=== PATIENT | female | born 1945 | race Caucasian/White ===

== ENCOUNTER 2020-09-11 16:28 | Inpatient (IN) | payer MEDICARE ==
--- NOTE | 2020-09-11 16:50 | ED ---
Chest Pain HPI - General Chief Complaint: Chest Pain Stated Complaint: SOB, Chest pain Time Seen by Provider: 09/11/20 16:38 Source: patient, RN notes reviewed Mode of arrival: ambulatory Limitations: no limitations - History of Present Illness Initial Comments: This is a 75-year-old female with no prior history of heart or lung disease other than she did have blood clots in the 1970s secondary to control pills who presents with complaints of the onset of difficulty breathing and exertional dyspnea with some lower midsternal dull pain yesterday. She also states she has sweats 2 days ago. No cough no phlegm production no fevers or chills. Currently arrest she's not having difficulty breathing. No other complaints or modifying factors at this time she does states she is a nonsmoker. MD Complaint: chest pain, other - Related Data Allergies Allergy/AdvReac Type Severity Reaction Status Date / Time phenytoin [From Dilantin] Allergy Unknown Verified 09/11/20 16:36 Review of Systems ROS Statement: Those systems with pertinent positive or pertinent negative responses have been documented in the HPI. ROS Other: All systems not noted in ROS Statement are negative. EKG Findings - EKG Results: EKG: interpreted by LAWRENCED, sinus rhythm (Sinus rhythm tachycardia rate of 108. Interval 168 QRS duration 148 QT since QTC 358/479) block pattern nonspecific T- wave configuration) Past Medical History Past Medical History: Seizure Disorder Additional Past Surgical History / Comment(s): arm surgery Past Psychological History: No Psychological Hx Reported Smoking Status: Never smoker Past Alcohol Use History: Occasional Past Drug Use History: None Reported General Exam - General Exam Comments Initial Comments: This is a well-developed well-nourished awake alert oriented 3 female Limitations: no limitations General appearance: alert, in no apparent distress Head exam: Present: atraumatic, normocephalic, normal inspection Eye exam: Present: normal appearance, PERRL, EOMI. Absent: scleral icterus, conjunctival injection, periorbital swelling ENT exam: Present: normal exam, mucous membranes moist Neck exam: Present: normal inspection. Absent: tenderness, meningismus, lymphadenopathy Respiratory exam: Present: normal lung sounds bilaterally. Absent: respiratory distress, wheezes, rales, rhonchi, stridor Cardiovascular Exam: Present: normal rhythm, tachycardia, normal heart sounds. Absent: systolic murmur, diastolic murmur, rubs, gallop, clicks GI/Abdominal exam: Present: soft, normal bowel sounds. Absent: distended, tenderness, guarding, rebound, rigid Extremities exam: Present: normal inspection, full ROM, normal capillary refill. Absent: tenderness, pedal edema, joint swelling, calf tenderness Back exam: Present: normal inspection Neurological exam: Present: alert, oriented X3, CN II-XII intact Psychiatric exam: Present: normal affect, normal mood Skin exam: Present: warm, dry, intact, normal color. Absent: rash Course Vital Signs 09/11/20 09/11/20 09/11/20 16:30 17:05 17:30 Temperature 98.9 F Pulse Rate 118 H 107 H 106 H Respiratory 20 22 19 Rate Blood Pressure 129/69 O2 Sat by Pulse 94 L Oximetry 09/11/20 09/11/20 09/11/20 18:00 18:30 19:00 Temperature Pulse Rate 118 H 118 H Respiratory 18 19 Rate Blood Pressure 128/103 126/91 145/103 O2 Sat by Pulse Oximetry - Reevaluation(s) Reevaluation #1: 09/11/20 17:18 No old EKG for comparison at this time Reevaluation #2: 09/11/20 19:05 I did discuss findings the patient and her daughter and grandson who is an ICU nurse at this facility. Patient initially did not want to stay but she is convinced to stay in the hospital for further evaluation. She does have evidence of a saddle pulmonary embolus without right heart strain as well as elevated troponin indicative of an STEMI her EKG did show a right bundle-branch block with no old ones for comparison Chest Pain MDM - MDM I did review the imaging and report the x-ray was unremarkable CAT SCAN DOES SHOW EVIDENCE OF A SADDLE EMBOLUS WITHOUT HEART STRAIN. Critical Care Time Critical Care Time: Yes Total Critical Care Time: 44 Critical Care Time: This includes initial presentation with history physical labs x-rays multiple reevaluation and discussed with the patient family regarding findings discussed with Dr. junior admitting orders documentation the above also discussed with the pulp beater Disposition Clinical Impression: Pulmonary embolism, Non-STEMI (non-ST elevated myocardial infarction), Right bundle branch block Disposition: ADMITTED IP TO THIS [facility] Condition: Stable Referrals: Nonstaff,Physician [Primary Care Provider] - 1-2 days
[2020-09-11 17:23] LABS: Basophils % (A) 0 %; Eosinophils % (A) 1 %; HGB 14.8 gm/dL (11.4-16.0); Lymphocytes # (A) 0.7 k/uL (1.0-4.8); Lymphocytes % (A) 8 %; MCH 30.6 pg (25.0-35.0); MCHC 31.5 g/dL (31.0-37.0); MCV 97.1 fL (80.0-100.0); Mean Platelet Volume 7.8; Monocytes # (A) 0.5 k/uL (0-1.0); Monocytes % (A) 5 %; Neutrophils # (A) 7.8 k/uL (1.3-7.7); Neutrophils % (A) 86 %; Platelet Count 119 k/uL (150-450); RBC 4.84 m/uL (3.80-5.40); RDW 13.3 % (11.5-15.5); WBC 9.2 k/uL (3.8-10.6)
[2020-09-11 17:40] LABS: Albumin 4.6 g/dL (3.5-5.0); Calcium 9.9 mg/dL (8.4-10.2); Magnesium 2.2 mg/dL (1.6-2.3); Potassium 4.4 mmol/L (3.5-5.1); Total Bilirubin 0.5 mg/dL (0.2-1.3); Total Protein 7.4 g/dL (6.3-8.2)
[2020-09-11 17:41] LABS: INR 1.1 (<1.2); Partial Thromboplastin Time 22.4 sec (22.0-30.0); Prothrombin Time 11.4 sec (9.0-12.0)
--- NOTE | 2020-09-11 17:42 | XR ---
EXAMINATION TYPE: XR chest 2V DATE OF EXAM: 09/11/2020 COMPARISON: None INDICATION: Chest pain, short of breath TECHNIQUE: Frontal and lateral views of the chest are obtained. FINDINGS: The heart size is normal. The pulmonary vasculature is normal. The lungs are clear. No pneumothorax is evident. Old right rib fractures are noted. IMPRESSION: 1. No acute pulmonary process.
[2020-09-11 17:44] LABS: D-Dimer 14.3 mg/L FEU (<0.60)
--- NOTE | 2020-09-11 18:27 | CT ---
CT CHEST FOR PULMONARY EMBOLISM. EXAMINATION TYPE: CT angio chest DATE OF EXAM: 09/11/2020 INDICATION: Shortness of breath, chest pain and elevated d-dimer. CT DLP: 297.6 mGycm, Automated exposure control for dose reduction was used. CONTRAST: Patient injected with 100ml mL of Isovue 370. COMPARISON: None TECHNIQUE: CT of the chest is performed on a spiral scan at 2 mm thick sections. Study is performed with intravenous contrast timed for evaluation for pulmonary embolism. This will limit additional po rtions of the evaluation. 3-D MIP images reconstructed by the technologist are reviewed on the compu ter in the coronal and sagittal planes. FINDINGS: There are large central bilateral pulmonary emboli. This may be a saddle embolism crossing the midlin e. No mediastinal or hilar adenopathy enlarged by CT criteria is evident. The ascending aorta diameter at the level of the main pulmonary artery is 3.2 cm. The main pulmonary artery diameter at the bifur cation is 2.7 cm. No reflux into the proximal inferior vena cava is evident. Lung windows are clear. Limited CT section through the upper abdomen are unremarkable. IMPRESSIONS: 1. Large central pulmonary emboli with thrombus crossing the midline compatible with a saddle embolis m. A Red level critical message alert has been initiated for Jeovany Shirley MD via the [employer] Critical Results System on 09/11/2020 6:24 PM. This message alert has been sent to Jeovany Shirley MD via the preferences provided by the clinician for the receipt of Radiology Critical Findings. Message ID [id number].
[2020-09-11] MEDS ORDERED: HEPARIN SODIUM,PORCINE 10,000 UNIT/ML 1 ML VIAL IV ONE (18:32)
[2020-09-11] MEDS ORDERED: HEPARIN SODIUM,PORCINE 5,000 UNIT/ML 1 ML VIAL IV PRN (18:32)
[2020-09-11] MEDS ORDERED: NITROGLYCERIN SL TABS 0.4 MG TAB SUBLINGUAL PRN (19:08)
[2020-09-11] MEDS: HEPARIN SOD,PORK IN 0.45% NACL 25,000 UNIT in 0.45% NACL 1 250ML.BAG IV SCH (19:40)
[2020-09-11] MEDS: SODIUM CHLORIDE 0.9% 1,000 ML IV SCH (19:44)
[2020-09-11] MEDS: MELOXICAM 7.5 MG TAB PO SCH (20:15)
[2020-09-11] MEDS ORDERED: clonazePAM 0.5 MG TAB PO PRN (22:24)
[2020-09-12 05:05] VITALS: RESP 18
[2020-09-12] MEDS: SODIUM CHLORIDE 0.9% 1,000 ML IV SCH ×2 (05:06→16:15)
[2020-09-12 09:00] LABS: Basophils # (A) 0.1 k/uL (0-0.2); Basophils % (A) 1 %; Eosinophils % (A) 0 %; HCT 39.9 % (34.0-46.0); HGB 12.8 gm/dL (11.4-16.0); Lymphocytes # (A) 2.3 k/uL (1.0-4.8); Lymphocytes % (A) 26 %; Mean Platelet Volume 7.7; Monocytes # (A) 0.6 k/uL (0-1.0); Monocytes % (A) 7 %; Neutrophils # (A) 5.6 k/uL (1.3-7.7); Neutrophils % (A) 64 %; Platelet Count 104 k/uL (150-450); RBC 4.11 m/uL (3.80-5.40); RDW 13.4 % (11.5-15.5); WBC 8.9 k/uL (3.8-10.6)
[2020-09-12] MEDS ORDERED: ASPIRIN 325 MG TAB PO SCH (09:00)
[2020-09-12] MEDS ORDERED: CITALOPRAM HYDROBROMIDE 20 MG TAB PO SCH (09:00)
[2020-09-12] MEDS ORDERED: ASPIRIN 81 MG PO SCH (09:00)
[2020-09-12 09:14] LABS: Cholesterol 136 mg/dL (<200); HDL Cholesterol 62 mg/dL (40-60); LDL Cholesterol,Calculated 59 mg/dL (0-99); Triglycerides 74 mg/dL (<150)
[2020-09-12] MEDS: MELOXICAM 7.5 MG TAB PO SCH (09:16)
--- NOTE | 2020-09-12 09:41 | US ---
EXAMINATION TYPE: US venous doppler duplex LE DATE OF EXAM: 09/12/2020 9:22 AM COMPARISON: NONE CLINICAL HISTORY: +PE, r/o DVT. SIDE PERFORMED: Bilateral TECHNIQUE: The lower extremity deep venous system is examined utilizing real time linear array sonog sarita with graded compression, doppler sonography and color-flow sonography. VESSELS IMAGED: Common Femoral Vein Deep Femoral Vein Greater Saphenous Vein * Femoral Vein Popliteal Vein Small Saphenous Vein * Proximal Calf Veins (* superficial vessels) Right Leg: Negative for DVT Left Leg: Positive for DVT starting at the proximal popliteal vein extending through calf veins. IMPRESSION: 1. Exam positive for left lower extremity DVT originating at the popliteal vein and extending into th e calf veins.
--- NOTE | 2020-09-12 11:31 | ECHOF ---
Referral Reason:Saddle PE, lv function MEASUREMENTS -------- HEIGHT: 162.6 cm WEIGHT: 69.9 kg BP: RVIDd: 3.8 cm (< 3.3) IVSd: 1.1 cm (0.6 - 1.1) LVIDd: 3.2 cm (3.9 - 5.3) LVPWd: 1.1 cm (0.6 - 1.1) IVSs: 1.3 cm LVIDs: 2.8 cm LVPWs: 1.2 cm Ao Diam: 3.3 cm (2.0 - 3.7) AV Cusp: 1.9 cm (1.5 - 2.6) MV EXCURSION: 13.536 mm (> 18.000) MV E Alejandro: 0.34 m/s MV DecT: 180 ms MV A Alejandro: 0.86 m/s MV E/A Ratio: 0.40 RAP: 5.00 mmHg RVSP: 48.51 mmHg FINDINGS -------- Sinus rhythm. This was a technically adequate study. LV size, wall thickness and systolic function are normal, with an EF greater than 55%. The left angelica tricular size is normal. The right ventricle is severely enlarged. The right ventricular septal wall is flattened in diastol e and systole which is consistent with right ventricular volume and pressure overload. The left atrial size is normal. The right atrial size is normal. The aortic valve is trileaflet, and appears structurally normal. No aortic stenosis or regurgitation. Mild tricuspid regurgitation present. There is moderate to severe pulmonary hypertension. There is no pulmonic regurgitation present. There is an echogenic, highly mobile 2.5cm x 0.5cm strutcutre in the right atrium most consistent wit h a thombus. Additionally there is a 0.5cm x 3cm mobile echogenic structure which appears to origina te near the intratrial septum. Consideration could be paradoxical thrombus in transit or less likely artifact. Would consider MARTY if clinically indicated to further clarify. The aortic root size is normal. There is no pericardial effusion. CONCLUSIONS -------- 1. LV size, wall thickness and systolic function are normal, with an EF greater than 55%. 2. The left ventricular size is normal. 3. The right ventricle is severely enlarged. 4. The right ventricular septal wall is flattened in diastole and systole which is consistent with r ight ventricular volume and pressure overload. 5. The left atrial size is normal. 6. The right atrial size is normal. 7. Mild tricuspid regurgitation present. 8. There is moderate to severe pulmonary hypertension. 9. There is no pulmonic regurgitation present. 10. There is an echogenic, highly mobile 2.5cm x 0.5cm strutcutre in the right atrium most consistent with a thombus. Additionally there is a 0.5cm x 3cm mobile echogenic structure which appears to lalit ginate near the intratrial septum. Consideration could be paradoxical thrombus in transit or less li daljit artifact. Would consider MARTY if clinically indicated to further clarify. 11. The aortic root size is normal. 12. There is no pericardial effusion. ROLLER SKATER: Salome Sorensen RDCS
--- NOTE | 2020-09-12 11:43 | P.HPIM ---
History of Present Illness Patient is pleasant 75-year-old the female came in with complaints of exertional shortness of breath and midsternal dull chest pain mild chest pain going on since since last Friday. Patient was more short of breath because of which patient came to ER yesterday. Patient had a workup including CT angios the chest which showed large central pulmonary emboli crossing the midline compatible with saddle embolus patient does have extensive clot burden involving superior vena cava. There is no medial or hilar lymphadenopathy. Patient had an echo cardiac exam done official results are not available yet as per the leather stitcher patient does have right with chest pain with elevated troponins and significant EKG changes. Patient apparently has clot burden on the left side as well and there was a concern about paradoxical embolus. Patient is a candidate for clot extraction or intralesional thrombolytic. Same thing was discussed with vascular surgeon here who also happened to cover [facility] [place]. Case was discussed with the hospitalist of [facility] who accepted the patient. Patient does have elevated troponin and patient troponin elevation is progressive increased to around 1.45 presently and started is 0.7. Patient had a positive DVT in the left lower extremity originating in the popliteal vein and extending into the calf. Patient had a DVT many years ago when she was on oral contraceptive pills. Patient is up-to-date with her cancer screening procedures and patient denied any recent weight loss. Patient denied any recent travel or recent surgery. Patient although hemodynamics is stable at this time is on 2 L saturating at 92%. Review of Systems REVIEW OF SYSTEMS: CONSTITUTIONAL: No fever, no malaise, no fatigue. HEENT: No recent visual problems or hearing problems. Denied any sore throat. CARDIOVASCULAR: No orthopnea, PND, no palpitations, no syncope. PULMONARY: no hemoptysis. GASTROINTESTINAL: No diarrhea, no nausea, no vomiting, no abdominal pain. NEUROLOGICAL: No headaches, no weakness, no numbness. HEMATOLOGICAL: Denies any bleeding or petechiae. GENITOURINARY: Denies any burning micturition, frequency, or urgency. MUSCULOSKELETAL/RHEUMATOLOGICAL: Denies any joint pain, swelling, or any muscle pain. ENDOCRINE: Denies any polyuria or polydipsia. The rest of the 14-point review of systems is negative. Past Medical History Past Medical History: Pulmonary Embolus (PE), Seizure Disorder Additional Past Medical History / Comment(s): last seizure date not known currently on no meds for this at home. Had PE in the 1970s related to control use. History of Any Multi-Drug Resistant Organisms: None Reported Additional Past Surgical History / Comment(s): arm surgery Past Psychological History: No Psychological Hx Reported Smoking Status: Never smoker Past Alcohol Use History: Occasional Past Drug Use History: None Reported Medications and Allergies Home Medications Medication Instructions Recorded Confirmed Type Aspirin [[place]raham Aspirin EC] 81 mg PO DAILY 09/11/20 09/11/20 History Citalopram Hydrobromide 40 mg PO DAILY 09/11/20 09/11/20 History [Citalopram HBr] Dicyclomine HCl 20 mg PO BID 09/11/20 09/11/20 History Meloxicam 15 mg PO HS 09/11/20 09/11/20 History Vitamin B12 Gummies (Unknown 1 tab PO DAILY 09/11/20 09/11/20 History Strength) clonazePAM [KlonoPIN] 0.5 mg PO HS PRN 09/11/20 09/11/20 History rOPINIRole HCL [Requip] 1 mg PO HS 09/11/20 09/11/20 History Allergies Allergy/AdvReac Type Severity Reaction Status Date / Time phenytoin [From Dilantin] Allergy Unknown Verified 09/11/20 20:08 Physical Exam Vitals: Vital Signs Temp Pulse Pulse Resp BP BP Pulse Ox 09/12/20 11:26 97.6 F 87 18 126/85 93 L 09/12/20 09:39 98.2 F 88 18 136/81 92 L 09/12/20 04:00 98.8 F 86 18 124/70 97 09/12/20 02:00 110 H 20 09/11/20 23:01 110 H 20 130/80 98 09/11/20 22:47 75 20 09/11/20 20:00 97.6 F 112 H 20 121/80 96 09/11/20 19:42 116 H 16 157/69 09/11/20 19:23 98.2 F 75 18 136/82 94 L 09/11/20 19:00 118 H 19 145/103 09/11/20 18:30 118 H 18 126/91 09/11/20 18:00 128/103 09/11/20 17:30 106 H 19 09/11/20 17:05 107 H 22 09/11/20 16:30 98.9 F 118 H 20 129/69 94 L Intake and Output 09/11/20 09/12/20 09/12/20 22:59 06:59 14:59 Intake Total 920.264 0 Output Total 250 Balance 670.264 0 Intake: Intake, IV Titration 680.264 0 Amount Heparin Sod,Pork in 0.45% 80.264 0 NaCl 25,000 unit In 0.45 % NaCl 1 250ml.bag @ 18 UNITS/KG/HR 12.574 mls/hr IV .[id number] SHAYY Rx#: [id number] Sodium Chloride 0.9% 1, 600 000 ml @ 100 mls/hr IV . Q10H SHAYY Rx#:[id number] Oral 240 Output: Urine 250 Other: Voiding Method Bedside Commode Bedside Commode Bedside Commode # Voids 1 1 Weight 69.853 kg 70.1 kg PHYSICAL EXAMINATION: GENERAL: The patient is alert and oriented x3, not in any acute distress. Well developed, well nourished. HEENT: Pupils are round and equally reacting to light. EOMI. No scleral icterus. No conjunctival pallor. Normocephalic, atraumatic. No pharyngeal erythema. No thyromegaly. CARDIOVASCULAR: S1 and S2 present. No murmurs, rubs, or gallops. PULMONARY: Chest is clear to auscultation, no wheezing or crackles. ABDOMEN: Soft, nontender, nondistended, normoactive bowel sounds. No palpable organomegaly. MUSCULOSKELETAL: No joint swelling or deformity. EXTREMITIES: No cyanosis, clubbing, or pedal edema. NEUROLOGICAL: Gross neurological examination did not reveal any focal deficits. SKIN: No rashes. Results CBC & Chem 7: 09/12/20 08:25 09/11/20 17:07 Labs: Abnormal Lab Results - Last 24 Hours (Table) 09/11/20 09/11/20 09/11/20 Range/Units 17:07 17:07 17:07 Hct 47.0 H (34.0-46.0) % Plt Count 119 L (150-450) k/uL Neutrophils # 7.8 H (1.3-7.7) k/uL Lymphocytes # 0.7 L (1.0-4.8) k/uL APTT (22.0-30.0) sec D-Dimer 14.30 H (<0.60) mg/L FEU BUN 27 H (7-17) mg/dL Glucose 168 H (74-99) mg/dL AST 161 H (14-36) U/L ALT 202 H (4-34) U/L Creatine Kinase 238 H (30-135) U/L Troponin I (0.000-0.034) ng/mL HDL Cholesterol (40-60) mg/dL 09/11/20 09/11/20 09/11/20 Range/Units 17:07 19:56 23:11 Hct (34.0-46.0) % Plt Count (150-450) k/uL Neutrophils # (1.3-7.7) k/uL Lymphocytes # (1.0-4.8) k/uL APTT (22.0-30.0) sec D-Dimer (<0.60) mg/L FEU BUN (7-17) mg/dL Glucose (74-99) mg/dL AST (14-36) U/L ALT (4-34) U/L Creatine Kinase (30-135) U/L Troponin I 0.775 H* 1.070 H* 1.450 H* (0.000-0.034) ng/mL HDL Cholesterol (40-60) mg/dL 09/12/20 09/12/20 09/12/20 Range/Units 01:19 08:25 08:25 Hct (34.0-46.0) % Plt Count 104 L (150-450) k/uL Neutrophils # (1.3-7.7) k/uL Lymphocytes # (1.0-4.8) k/uL APTT 143.8 H* (22.0-30.0) sec D-Dimer (<0.60) mg/L FEU BUN (7-17) mg/dL Glucose (74-99) mg/dL AST (14-36) U/L ALT (4-34) U/L Creatine Kinase (30-135) U/L Troponin I (0.000-0.034) ng/mL HDL Cholesterol 62 H (40-60) mg/dL 09/12/20 Range/Units 08:25 Hct (34.0-46.0) % Plt Count (150-450) k/uL Neutrophils # (1.3-7.7) k/uL Lymphocytes # (1.0-4.8) k/uL APTT 85.0 H (22.0-30.0) sec D-Dimer (<0.60) mg/L FEU BUN (7-17) mg/dL Glucose (74-99) mg/dL AST (14-36) U/L ALT (4-34) U/L Creatine Kinase (30-135) U/L Troponin I (0.000-0.034) ng/mL HDL Cholesterol (40-60) mg/dL Thrombosis Risk Factor Assmnt - Choose All That Apply Each Risk Factor Represents 2 Points: Age 61-74 years Each Risk Factor Represents 3 Points: History of DVT/PE Thrombosis Risk Factor Assessment Total Risk Factor Score: 5 Thrombosis Risk Factor Assessment Level: High Risk Assessment and Plan Plan: -Pulmonary embolism, patient has had an embolus and extensive clot burden will require either clot extraction or intralesional, reticulocyte therapy. Patient the will be transferred to [facility] for higher level of care. Patient will be continued on IV heparin for now. Rapid: Testing was ordered as per the request from -Elevated troponin: Secondary to left ventricular strain. Possibility of paradoxical embolus. -Left lower limb DVT -Seizure disorder patient is presently on any antiseizure medications, date of last seizure was not known -Depression Patient will be transferred to [facility] because of above- mentioned
--- NOTE | 2020-09-12 11:43 | P.DS ---
Providers Date of admission: 09/11/20 19:08 Attending physician: Phani Thomas MD Consults: 09/11/20 19:08 Consult Physician Routine Consulting Provider: Rosalina Martin Consult Reason/Comments: PE Do you want consulting provider notified?: Yes Consult Physician Urgent Consulting Provider: Sabrina Dawkins Consult Reason/Comments: NSTEMI, PE Do you want consulting provider notified?: Already Contacted 09/12/20 10:14 Consult Physician Routine Consulting Provider: Elier Lopez Consult Reason/Comments: PE/EKOS Do you want consulting provider notified?: Yes Primary care physician: Physician Nonsta Hospital Course: Refer to HPI for further details Patient Condition at Discharge: Stable Plan - Discharge Summary Discharge Rx Participant: No New Discharge Prescriptions: No Action rOPINIRole HCL [Requip] 1 mg PO HS Meloxicam 15 mg PO HS Vitamin B12 Gummies (Unknown Strength) 1 tab PO DAILY Dicyclomine HCl 20 mg PO BID Citalopram Hydrobromide [Citalopram HBr] 40 mg PO DAILY Aspirin [[place] Aspirin EC] 81 mg PO DAILY clonazePAM [KlonoPIN] 0.5 mg PO HS PRN PRN Reason: insomnia Discharge Medication List Aspirin [[place] Aspirin EC] 81 mg PO DAILY 09/11/20 [History] Citalopram Hydrobromide [Citalopram HBr] 40 mg PO DAILY 09/11/20 [History] Dicyclomine HCl 20 mg PO BID 09/11/20 [History] Meloxicam 15 mg PO HS 09/11/20 [History] Vitamin B12 Gummies (Unknown Strength) 1 tab PO DAILY 09/11/20 [History] clonazePAM [KlonoPIN] 0.5 mg PO HS PRN 09/11/20 [History] rOPINIRole HCL [Requip] 1 mg PO HS 09/11/20 [History]
--- NOTE | 2020-09-12 11:55 | P.GSCN ---
History of Present Illness Consult date: 09/12/20 Reason for Consult: Bilateral pulmonary embolism, possible EKOS Requesting physician: Rosalina Martin History of present illness: This is a 75-year-old female with no prior history of heart or lung disease who presented to the ER for complaints of shortness of breath since Friday. She does have a history of pulmonary embolism in the secondary to control pills. Denies any family history of clotting disorders, any personal history of clotting disorders, she denies any recent travel or surgery. 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 She had a CT angiogram of the chest which showed a large central pulmonary embolism with thrombus crossing the midline compatible with a saddle embolism. She also had a bilateral venous Doppler study which showed positive DVT starting at the proximal popliteal vein extending through the calf veins. We've been consulted due to the pulmonary embolism, with reported right heart strain. Echocardiogram was performed, is reported that they saw a right heart strain, however report is still pending. She is currently on a heparin drip. Patient is complaining of shortness of breath, she denies any chest pain, abdominal pain, nausea or vomiting. She denies any pain to her bilateral lower extremities, denies pain to the left calf. States that she does have some numbness in her right lower extremity. Vital signs are stable, blood pressure 126/85, heart rate 87, respiratory rate 18, oxygen level 93% 2 L of nasal cannula. WBC 8.9, hemoglobin 12.8, hematocrit 39.9, platelets 104. PTT 85, d- dimer 14.3, 137, potassium 4.4, chloride 105 CO2 23 BUN 27, creatinine 0.9 Review of Systems A 14 point review of systems was completed all pertinent positives and negatives as stated in HPI. Past Medical History Past Medical History: Pulmonary Embolus (PE), Seizure Disorder Additional Past Medical History / Comment(s): last seizure date not known currently on no meds for this at home. Had PE in the s related to control use. History of Any Multi-Drug Resistant Organisms: None Reported Additional Past Surgical History / Comment(s): arm surgery Past Psychological History: No Psychological Hx Reported Smoking Status: Never smoker Past Alcohol Use History: Occasional Past Drug Use History: None Reported Medications and Allergies Home Medications Medication Instructions Recorded Confirmed Type Aspirin [[place] Aspirin EC] 81 mg PO DAILY 09/11/20 09/11/20 History Citalopram Hydrobromide 40 mg PO DAILY 09/11/20 09/11/20 History [Citalopram HBr] Dicyclomine HCl 20 mg PO BID 09/11/20 09/11/20 History Meloxicam 15 mg PO HS 09/11/20 09/11/20 History Vitamin B12 Gummies (Unknown 1 tab PO DAILY 09/11/20 09/11/20 History Strength) clonazePAM [KlonoPIN] 0.5 mg PO HS PRN 09/11/20 09/11/20 History rOPINIRole HCL [Requip] 1 mg PO HS 09/11/20 09/11/20 History Allergies Allergy/AdvReac Type Severity Reaction Status Date / Time phenytoin [From Dilantin] Allergy Unknown Verified 09/11/20 20:08 Surgical - Exam Vital Signs Temp Pulse Resp BP Pulse Ox 98.9 F 118 H 20 129/69 94 L 09/11/20 16:30 09/11/20 16:30 09/11/20 16:30 09/11/20 16:30 09/11/20 16:30 General appearance: The patient is alert, oriented, in no acute distress. HET: Head is normocephalic and atraumatic. Pupils are equal and reactive. Oropharynx is clear without lesions. Neck: Supple without lymphadenopathy. Trachea midline. Heart: S1 S2. Regular rate and rhythm. Lungs: No crackles or wheezes are heard. Abdomen: Soft, nontender, nondistended. Extremities: Normal skin color and turgor. No cyanosis, rash, ulceration, clubbing, or edema. Radial and pedal pulses are 2/4 bilaterally. Neurological: No focal deficits. Strength and sensation are grossly intact. Results CT angiogram of the chest which showed a large central pulmonary embolism with thrombus crossing the midline compatible with a saddle embolism. Venous Doppler study which showed positive DVT starting at the proximal popliteal vein extending through the calf veins. - Labs 09/12/20 08:25 09/11/20 17:07 Abnormal Lab Results - Last 24 Hours (Table) 09/11/20 09/11/20 09/11/20 Range/Units 17:07 17:07 17:07 Hct 47.0 H (34.0-46.0) % Plt Count 119 L (150-450) k/uL Neutrophils # 7.8 H (1.3-7.7) k/uL Lymphocytes # 0.7 L (1.0-4.8) k/uL APTT (22.0-30.0) sec D-Dimer 14.30 H (<0.60) mg/L FEU BUN 27 H (7-17) mg/dL Glucose 168 H (74-99) mg/dL AST 161 H (14-36) U/L ALT 202 H (4-34) U/L Creatine Kinase 238 H (30-135) U/L Troponin I (0.000-0.034) ng/mL HDL Cholesterol (40-60) mg/dL 09/11/20 09/11/20 09/11/20 Range/Units 17:07 19:56 23:11 Hct (34.0-46.0) % Plt Count (150-450) k/uL Neutrophils # (1.3-7.7) k/uL Lymphocytes # (1.0-4.8) k/uL APTT (22.0-30.0) sec D-Dimer (<0.60) mg/L FEU BUN (7-17) mg/dL Glucose (74-99) mg/dL AST (14-36) U/L ALT (4-34) U/L Creatine Kinase (30-135) U/L Troponin I 0.775 H* 1.070 H* 1.450 H* (0.000-0.034) ng/mL HDL Cholesterol (40-60) mg/dL 09/12/20 09/12/20 09/12/20 Range/Units 01:19 08:25 08:25 Hct (34.0-46.0) % Plt Count 104 L (150-450) k/uL Neutrophils # (1.3-7.7) k/uL Lymphocytes # (1.0-4.8) k/uL APTT 143.8 H* (22.0-30.0) sec D-Dimer (<0.60) mg/L FEU BUN (7-17) mg/dL Glucose (74-99) mg/dL AST (14-36) U/L ALT (4-34) U/L Creatine Kinase (30-135) U/L Troponin I (0.000-0.034) ng/mL HDL Cholesterol 62 H (40-60) mg/dL 09/12/20 Range/Units 08:25 Hct (34.0-46.0) % Plt Count (150-450) k/uL Neutrophils # (1.3-7.7) k/uL Lymphocytes # (1.0-4.8) k/uL APTT 85.0 H (22.0-30.0) sec D-Dimer (<0.60) mg/L FEU BUN (7-17) mg/dL Glucose (74-99) mg/dL AST (14-36) U/L ALT (4-34) U/L Creatine Kinase (30-135) U/L Troponin I (0.000-0.034) ng/mL HDL Cholesterol (40-60) mg/dL Diabetes panel 09/11/20 09/12/20 Range/Units 17:07 08:25 Sodium 137 (137-145) mmol/L Potassium 4.4 (3.5-5.1) mmol/L Chloride 105 (98-107) mmol/L Carbon Dioxide 23 (22-30) mmol/L BUN 27 H (7-17) mg/dL Creatinine 0.90 (0.52-1.04) mg/dL Glucose 168 H (74-99) mg/dL Calcium 9.9 (8.4-10.2) mg/dL AST 161 H (14-36) U/L ALT 202 H (4-34) U/L Alkaline Phosphatase 80 (38-126) U/L Total Protein 7.4 (6.3-8.2) g/dL Albumin 4.6 (3.5-5.0) g/dL Triglycerides 74 (<150) mg/dL HDL Cholesterol 62 H (40-60) mg/dL Calcium panel 09/11/20 Range/Units 17:07 Calcium 9.9 (8.4-10.2) mg/dL Albumin 4.6 (3.5-5.0) g/dL Pituitary panel 09/11/20 Range/Units 17:07 Sodium 137 (137-145) mmol/L Potassium 4.4 (3.5-5.1) mmol/L Chloride 105 (98-107) mmol/L Carbon Dioxide 23 (22-30) mmol/L BUN 27 H (7-17) mg/dL Creatinine 0.90 (0.52-1.04) mg/dL Glucose 168 H (74-99) mg/dL Calcium 9.9 (8.4-10.2) mg/dL Adrenal panel 09/11/20 Range/Units 17:07 Sodium 137 (137-145) mmol/L Potassium 4.4 (3.5-5.1) mmol/L Chloride 105 (98-107) mmol/L Carbon Dioxide 23 (22-30) mmol/L BUN 27 H (7-17) mg/dL Creatinine 0.90 (0.52-1.04) mg/dL Glucose 168 H (74-99) mg/dL Calcium 9.9 (8.4-10.2) mg/dL Total Bilirubin 0.5 (0.2-1.3) mg/dL AST 161 H (14-36) U/L ALT 202 H (4-34) U/L Alkaline Phosphatase 80 (38-126) U/L Total Protein 7.4 (6.3-8.2) g/dL Albumin 4.6 (3.5-5.0) g/dL Assessment and Plan Assessment: 1. Bilateral pulmonary embolism 2. Left lower extremity deep vein thrombosis Plan: The patient was discussed with Dr. Trina Jules who agree patient to be transferred to [facility] for further management and possible EKOS. Continue with heparin drip. Transfer is being arranged with case management and by primary medical team. Thank you for this consultation, and allowing us to take part in the plan of care of your patient during her hospitalization. The above dictated assessment and findings were discussed with Dr. Mena. The impression and plan of care have been directed as dictated.
--- NOTE | 2020-09-12 12:08 | EST ---
EXERCISE STRESS Belkis Ribera is a 75-year-old female who was admitted with saddle pulmonary embolism. Cardiology was consulted on account of abnormal troponins. Please see the full dictation by the nurse practitioner. I evaluated, interviewed and examined the patient. IMPRESSION: 1. Large saddle embolus with an abnormal ECG with sinus tachycardia and S1 Q3 T3. 2. No neurologic symptoms. 3. Minimal discomfort and shortness of breath. The patient actually looks very comfortable and was ambulating in the room. 2D echo was reviewed. The right ventricle is enlarged. A stained pattern is noted. More importantly, the thrombus/clot burden in this patient is high. This can be visualized in the IVC and the right atrium. There is a linear mass (likely thrombus clot) abutting against the interatrial septum. There is also a linear shadow in the left ventricle and the left atrium crossing the mitral anulus that is likely a result of paradoxical embolism and most likely represents thrombus on the left side. The patient has absolutely no neurologic symptoms. I discussed this with Dr. Thomas and Dr. Rodriguez. I discussed this with Dr. Martin, pulmonology. I would recommend that the patient be transferred to a facility where the option of [place] exists. Clot aspiration as well as thrombolytics are considerations here especially on the right side and the mass that is abutting against the interatrial septum. The patient is currently on IV heparin. This was discussed with the patient and I would recommend urgent transfer. RADHA / SORAYAN: [id number] /
--- NOTE | 2020-09-12 13:02 | P.CNPUL ---
History of Present Illness Consult date: 09/12/20 Reason for consult: dyspnea, chest pain Chief complaint: Dyspnea, chest discomfort History of present illness: This is a 75-year-old white female patient who has no history of chronic lung disease, she has a past medical history of seizure disorder, who presented to the hospital on 09/11/2020 with complaints of shortness of breath since Friday, and her shortness of breath progressed and was worse with any exertion. She did have some mild chest dull ache anteriorly, but no syncope, no hemoptysis. She stated that she did have a prior history of blood clots in the 1970s when she was on control pills. She denies any history of recent surgery, no family history of PEs or DVTs, no history of cancer, no recent history of travel. No fever or chills, no cough. Chest x-ray showed no acute pulmonary process, labs revealed a significantly elevated d-dimer of 14.3, and CTA chest was obtained showing a large central pulmonary emboli with thrombus crossing the midline compatible with a saddle embolism, there was no mediastinal hilar adenopathy, and the pulmonary artery diameter at the bifurcation was 2.7 cm, and there was no reflux into the proximal inferior vena cava that was evident, lung windows were clear. She was started on high intensity heparin infusion, lower extremity Dopplers revealed a left lower extremity DVT at the proximal popliteal vein extending through the calf veins. Vitals have been stable, no hypotension, she is not requiring any supplemental oxygen, she appears to be comfortable, cardiology was consulted, echocardiogram was obtained showing EF greater than 55%, normal left ventricular size, right ventricle was severely enlarged, with the right ventricular septal wall flattening in diastole and systole which was consistent with right ventricular volume and pressure overload. There was no aortic stenosis or regurgitation, there was mild TR, moderate to severe pulmonary hypertension, and there was an echogenic highly mobile 2.5 cm x 0.5 cm structure in the right atrium most consistent with a thrombus, with an additional 0.5 cm x 3 cm mobile echogenic structure near the intra-atrial septum, with the consideration for paradoxical thrombus in transit. Patient also had positive troponins, quickly 0.775, 1.070, and 1.450, proBNP is 4810. Review of Systems All systems: negative Constitutional: Denies chills, Denies fever Eyes: denies blurred vision, denies pain Ears, nose, mouth and throat: Denies headache, Denies sore throat Cardiovascular: Denies chest pain, Denies shortness of breath Respiratory: Reports dyspnea, Denies cough Gastrointestinal: Denies abdominal pain, Denies diarrhea, Denies nausea, Denies vomiting Genitourinary: Denies dysuria, Denies hematuria Musculoskeletal: Denies myalgias Integumentary: Denies pruritus, Denies rash Neurological: Denies numbness, Denies weakness Psychiatric: Denies anxiety, Denies depression Endocrine: Denies fatigue, Denies weight change Past Medical History Past Medical History: Pulmonary Embolus (PE), Seizure Disorder Additional Past Medical History / Comment(s): last seizure date not known currently on no meds for this at home. Had PE in the s related to control use. History of Any Multi-Drug Resistant Organisms: None Reported Additional Past Surgical History / Comment(s): arm surgery Past Psychological History: No Psychological Hx Reported Smoking Status: Never smoker Past Alcohol Use History: Occasional Past Drug Use History: None Reported Medications and Allergies Home Medications Medication Instructions Recorded Confirmed Type Aspirin [[place] Aspirin EC] 81 mg PO DAILY 09/11/20 09/11/20 History Citalopram Hydrobromide 40 mg PO DAILY 09/11/20 09/11/20 History [Citalopram HBr] Dicyclomine HCl 20 mg PO BID 09/11/20 09/11/20 History Meloxicam 15 mg PO HS 09/11/20 09/11/20 History Vitamin B12 Gummies (Unknown 1 tab PO DAILY 09/11/20 09/11/20 History Strength) clonazePAM [KlonoPIN] 0.5 mg PO HS PRN 09/11/20 09/11/20 History rOPINIRole HCL [Requip] 1 mg PO HS 09/11/20 09/11/20 History Allergies Allergy/AdvReac Type Severity Reaction Status Date / Time phenytoin [From Dilantin] Allergy Unknown Verified 09/11/20 20:08 Physical Exam Vitals: Vital Signs Temp Pulse Pulse Resp BP BP Pulse Ox 09/12/20 11:26 97.6 F 87 18 126/85 93 L 09/12/20 09:39 98.2 F 88 18 136/81 92 L 09/12/20 04:00 98.8 F 86 18 124/70 97 12/15/20 02:00 110 H 20 09/11/20 23:01 110 H 20 130/80 98 09/11/20 22:47 75 20 09/11/20 20:00 97.6 F 112 H 20 121/80 96 09/11/20 19:42 116 H 16 157/69 09/11/20 19:23 98.2 F 75 18 136/82 94 L 09/11/20 19:00 118 H 19 145/103 09/11/20 18:30 118 H 18 126/91 09/11/20 18:00 128/103 09/11/20 17:30 106 H 19 09/11/20 17:05 107 H 22 09/11/20 16:30 98.9 F 118 H 20 129/69 94 L Intake and Output 09/11/20 09/12/20 09/12/20 22:59 06:59 14:59 Intake Total 920.264 0 Output Total 250 Balance 670.264 0 Intake: Intake, IV Titration 680.264 0 Amount Heparin Sod,Pork in 0.45% 80.264 0 NaCl 25,000 unit In 0.45 % NaCl 1 250ml.bag @ 18 UNITS/KG/HR 12.574 mls/hr IV .[id number] SHAYY Rx#: [id number] Sodium Chloride 0.9% 1, 600 000 ml @ 100 mls/hr IV . Q10H SHAYY Rx#:[id number] Oral 240 Output: Urine 250 Other: Voiding Method Bedside Commode Bedside Commode Bedside Commode # Voids 1 1 Weight 69.853 kg 70.1 kg GENERAL EXAM: Alert, very pleasant 75-year-old white female, on room air, with a pulse ox 93%, comfortable in no apparent distress. HEAD: Normocephalic/atraumatic. EYES: Normal reaction of pupils, equal size. Conjunctiva pink, sclera white. NOSE: Clear with pink turbinates. THROAT: No erythema or exudates. NECK: No masses, no JVD, no thyroid enlargement, no adenopathy. CHEST: No chest wall deformity. Symmetrical expansion. LUNGS: Equal air entry with no crackles, wheeze, rhonchi or dullness. CVS: Regular rate and rhythm, normal S1 and S2, no gallops, no murmurs, no rubs ABDOMEN: Soft, nontender. No hepatosplenomegaly, normal bowel sounds, no guarding or rigidity. EXTREMITIES: No clubbing, no edema, no cyanosis, 2+ pulses and upper and lower extremities. MUSCULOSKELETAL: Muscle strength and tone normal. SPINE: No scoliosis or deformity SKIN: No rashes CENTRAL NERVOUS SYSTEM: Alert and oriented -3. No focal deficits, tone is normal in all 4 extremities. PSYCHIATRIC: Alert and oriented -3. Appropriate affect. Intact judgment and insight. Results - Laboratory Findings CBC and BMP: 09/12/20 08:25 09/11/20 17:07 PT/INR, D-dimer PT 11.4 sec (9.0-12.0) 09/11/20 17:07 INR 1.1 (<1.2) 09/11/20 17:07 D-Dimer 14.30 mg/L FEU (<0.60) H 09/11/20 17:07 Abnormal lab findings: Abnormal Labs 09/11/20 09/11/20 09/11/20 17:07 17:07 17:07 Hct 47.0 H Plt Count 119 L Neutrophils # 7.8 H Lymphocytes # 0.7 L APTT D-Dimer 14.30 H BUN 27 H Glucose 168 H AST 161 H ALT 202 H Creatine Kinase 238 H Troponin I HDL Cholesterol 09/11/20 09/11/20 09/11/20 17:07 19:56 23:11 Hct Plt Count Neutrophils # Lymphocytes # APTT D-Dimer BUN Glucose AST ALT Creatine Kinase Troponin I 0.775 H* 1.070 H* 1.450 H* HDL Cholesterol 09/12/20 09/12/20 09/12/20 01:19 08:25 08:25 Hct Plt Count 104 L Neutrophils # Lymphocytes # APTT 143.8 H* D-Dimer BUN Glucose AST ALT Creatine Kinase Troponin I HDL Cholesterol 62 H 09/12/20 08:25 Hct Plt Count Neutrophils # Lymphocytes # APTT 85.0 H D-Dimer BUN Glucose AST ALT Creatine Kinase Troponin I HDL Cholesterol - Diagnostic Findings Chest x-ray: report reviewed, image reviewed CT scan - chest: report reviewed, image reviewed Additional studies: Extremity Dopplers, EKG reviewed, echocardiogram reviewed Assessment and Plan Plan: Assessment: #1. Acute central, saddle pulmonary emboli, with evidence of heavy clot burden in bilateral lungs, and and evidence of right ventricular strain #2. Dyspnea, and dull chest discomfort related to the above, and symptom onset was on 09/10/2020 #3. Left leg DVT #4. Previous history of PE and DVT in 1970s when the patient was taking control pills #5. History of seizure disorder on Dilantin #6. Troponin leak, elevated BNP, severe pulmonary hypertension related to acute saddle pulmonary embolism Plan: Agree with the plan to transfer the patient to [facility] for evaluation for EKOS procedure, she is not complaining of any worsening shortness of breath or chest pain, no hemoptysis, she is not on any oxygen, but echocardiogram revealed evidence of right ventricular strain, and heavy clot burden in bilateral lungs with the large saddle pulmonary embolism, there is severe pulmonary hypertension on echocardiogram. Continue with heparin infusion at high intensity protocol, should the patient decompensate we'll consider systemic TPA infusion, she is maintaining stable blood pressure, no syncope, no worsening dyspnea, we'll arrange for transfer to [facility] as soon as possible, this discussed with cardiology and attending physician I performed a history & physical examination of the patient and discussed their management with my nurse practitioner, Enriqueta Suarez. I reviewed the nurse practitioner's note and agree with the documented findings and plan of care. Lung sounds are positive for diminished breath sounds. The findings and the impression was discussed with the patient. I attest to the documentation by the nurse practitioner. Time with Patient: Greater than 30
--- NOTE | 2020-09-12 14:12 | P.CRDCN ---
History of Present Illness Consult date: 09/12/20 History of present illness: CHIEF COMPLAINT: Abnormal troponins HISTORY OF PRESENT ILLNESS: This is a 75-year old female with a past medical history significant for pulmonary embolism in the 1970s secondary to control and seizure disorder. 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 We have been asked to see the patient in consultation for abnormal troponins. Patient examined this morning at the bedside. Patient reports feeling short of breath for the past 2 days. She reports an episode of dull chest pain two days ago which has resolved. She denies chest pain or pressure at the time of examination. DIAGNOSTICS: EKG reveals sinus tachycardia with Q waves in lead I and III Chest xray negative for acute process Chest CTA: Large saddle pulmonary embolism Laboratory data: WBC 8.9. Hemoglobin 12.8. Platelet count 104. D-dimer 14.30. Sodium 137. Potassium 4.4. BUN 27. Creatinine 0.90. Magnesium 2.2. Current home cardiac medications include aspirin 81 mg daily Echocardiogram reveals ejection fraction greater than 55%, moderate to severe pulmonary hypertension, mild mitral regurgitation. There is an echogenic highly mobile 2.5 cm x 0.5 cm structure in the right atrium most consistent with a thrombus. Additionally there is a 0.5 cm x 3 cm mobile echogenic structure which appears to originate near the intrratrial septum. Consideration could be paradoxical thrombus in transit or less likely artifact. Lower extremity Doppler: Positive for left lower extremity DVT starting at the proximal popliteal vein extending into the calf veins. REVIEW OF SYSTEMS: At the time of my exam: CONSTITUTIONAL: Denies fever or chills. HEENT: Denies blurred vision, vision changes, or eye pain. Denies hemoptysis CARDIOVASCULAR: Denies chest pain, orthopnea, PND or palpitations RESPIRATORY: No shortness of breath. GASTROINTESTINAL: Denies abdominal pain. Denies nausea or vomiting. HEMATOLOGIC: Denies bleeding disorders. GENITOURINARY: Denies any blood in urine. SKIN: Denies pruitis. Denies rash. PHYSICAL EXAM: VITAL SIGNS: Reviewed. GENERAL: Well-developed in no acute distress. HEENT: Head is normocephalic. Pupils are equal, round. Sclerae anicteric. Mucous membranes of the mouth are moist. Neck supple. No JVD or thyromegaly LUNGS: Respirations even and unlabored. Lungs essentially clear to auscultation bilaterally. HEART: Regular rate and rhythm. S1 and S2 heard. ABDOMEN: Soft. Nondistended. Nontender. EXTREMITIES: Normal range of motion. No clubbing or cyanosis. Peripheral pulses intact. No lower extremity edema NEUROLOGIC: Awake and alert. Oriented x 3. ASSESSMENT: Acute large saddle pulmonary emboli with evidence of high clot burden in the IVC and right atrium with right heart strain Abnormal troponins, secondary to above Moderate to severe pulmonary hypertension Left lower extremity DVT History of PE in the , due to control pills per patient PLAN: Continue IV heparin Case discussed with internal medicine, pulmonary, and vascular Recommend transfer to higher level of care for possible Ekos, clot aspiration, or thrombolytics Nurse practitioner note has been reviewed by physician. Signing provider agrees with the documented findings, assessment, and plan of care. Past Medical History Past Medical History: Pulmonary Embolus (PE), Seizure Disorder Additional Past Medical History / Comment(s): last seizure date not known currently on no meds for this at home. Had PE in the related to control use. History of Any Multi-Drug Resistant Organisms: None Reported Additional Past Surgical History / Comment(s): arm surgery Past Psychological History: No Psychological Hx Reported Smoking Status: Never smoker Past Alcohol Use History: Occasional Past Drug Use History: None Reported Medications and Allergies Home Medications Medication Instructions Recorded Confirmed Type Aspirin [Whiteface Aspirin EC] 81 mg PO DAILY 09/11/20 09/11/20 History Citalopram Hydrobromide 40 mg PO DAILY 09/11/20 09/11/20 History [Citalopram HBr] Dicyclomine HCl 20 mg PO BID 09/11/20 09/11/20 History Meloxicam 15 mg PO HS 09/11/20 09/11/20 History Vitamin B12 Gummies (Unknown 1 tab PO DAILY 09/11/20 09/11/20 History Strength) clonazePAM [KlonoPIN] 0.5 mg PO HS PRN 09/11/20 09/11/20 History rOPINIRole HCL [Requip] 1 mg PO HS 09/11/20 09/11/20 History Allergies Allergy/AdvReac Type Severity Reaction Status Date / Time phenytoin [From Dilantin] Allergy Unknown Verified 09/11/20 20:08 Physical Exam Vitals: Vital Signs Temp Pulse Pulse Resp BP BP Pulse Ox 09/12/20 11:26 97.6 F 87 18 126/85 93 L 09/12/20 09:39 98.2 F 88 18 136/81 92 L 09/12/20 04:00 98.8 F 86 18 124/70 97 09/12/20 02:00 110 H 20 09/11/20 23:01 110 H 20 130/80 98 09/11/20 22:47 75 20 09/11/20 20:00 97.6 F 112 H 20 121/80 96 09/11/20 19:42 116 H 16 157/69 09/11/20 19:23 98.2 F 75 18 136/82 94 L 09/11/20 19:00 118 H 19 145/103 09/11/20 18:30 118 H 18 126/91 09/11/20 18:00 128/103 09/11/20 17:30 106 H 19 09/11/20 17:05 107 H 22 09/11/20 16:30 98.9 F 118 H 20 129/69 94 L Intake and Output 09/11/20 09/12/20 09/12/20 22:59 06:59 14:59 Intake Total 920.264 0 Output Total 250 Balance 670.264 0 Intake: Intake, IV Titration 680.264 0 Amount Heparin Sod,Pork in 0.45% 80.264 0 NaCl 25,000 unit In 0.45 % NaCl 1 250ml.bag @ 18 UNITS/KG/HR 12.574 mls/hr IV .[id number] [facility] Rx#: [id number] Sodium Chloride 0.9% 1, 600 000 ml @ 100 mls/hr IV . Q10H [facility] Rx#:[id number] Oral 240 Output: Urine 250 Other: Voiding Method Bedside Commode Bedside Commode Bedside Commode # Voids 1 1 Weight 69.853 kg 70.1 kg Results 09/12/20 08:25 09/11/20 17:07 Cardiac Enzymes 09/11/20 09/11/20 09/11/20 Range/Units 17:07 17:07 19:56 AST 161 H (14-36) U/L Troponin I 0.775 H* 1.070 H* (0.000-0.034) ng/mL 09/11/20 Range/Units 23:11 AST (14-36) U/L Troponin I 1.450 H* (0.000-0.034) ng/mL Coagulation 09/11/20 09/12/20 09/12/20 Range/Units 17:07 01:19 08:25 PT 11.4 (9.0-12.0) sec APTT 22.4 143.8 H* 85.0 H (22.0-30.0) sec Lipids 09/12/20 Range/Units 08:25 Triglycerides 74 (<150) mg/dL Cholesterol 136 (<200) mg/dL HDL Cholesterol 62 H (40-60) mg/dL CBC 09/11/20 09/12/20 Range/Units 17:07 08:25 WBC 9.2 8.9 (3.8-10.6) k/uL RBC 4.84 4.11 (3.80-5.40) m/uL Hgb 14.8 12.8 (11.4-16.0) gm/dL Hct 47.0 H 39.9 (34.0-46.0) % Plt Count 119 L 104 L (150-450) k/uL Comprehensive Metabolic Panel 09/11/20 Range/Units 17:07 Sodium 137 (137-145) mmol/L Potassium 4.4 (3.5-5.1) mmol/L Chloride 105 (98-107) mmol/L Carbon Dioxide 23 (22-30) mmol/L BUN 27 H (7-17) mg/dL Creatinine 0.90 (0.52-1.04) mg/dL Glucose 168 H (74-99) mg/dL Calcium 9.9 (8.4-10.2) mg/dL AST 161 H (14-36) U/L ALT 202 H (4-34) U/L Alkaline Phosphatase 80 (38-126) U/L Total Protein 7.4 (6.3-8.2) g/dL Albumin 4.6 (3.5-5.0) g/dL Current Medications Generic Name Dose Route Start Last Admin Trade Name Freq PRN Reason Stop Dose Admin Aspirin 81 mg 09/12/20 09:00 09/12/20 09:16 Aspirin 81 Mg PO 81 mg DAILY [facility] Administration Citalopram Hydrobromide 40 mg 09/12/20 09:00 09/12/20 09:16 Citalopram Hydrobromide 20 Mg Tab PO 40 mg DAILY [facility] Administration Clonazepam 0.5 mg 09/11/20 22:24 09/11/20 22:32 Clonazepam 0.5 Mg Tab PO 0.5 mg HS PRN Administration insomnia Heparin Sodium (Porcine) 0 unit 09/11/20 18:32 Heparin Sodium,Porcine 5,000 Unit/Ml 1 Ml Vial IV PER PROTOCOL PRN Low PTT Protocol Heparin Sodium/Sodium Chloride 250 mls @ 12.574 mls/hr 09/11/20 18:45 09/12/20 09:25 25,000 unit/ Sodium Chloride IV 12.99 units/kg/hr .[id number] [facility] 9.074 mls/hr Titration Protocol 18 UNITS/KG/HR Sodium Chloride 1,000 mls @ 100 mls/hr 09/11/20 19:15 09/12/20 05:06 Saline 0.9% IV Not Given .Q10H [facility] Meloxicam 15 mg 09/11/20 19:45 09/12/20 09:16 Meloxicam 7.5 Mg Tab PO 15 mg DAILY [facility] Administration Nitroglycerin 0.4 mg 09/11/20 19:08 Nitroglycerin Sl Tabs 0.4 Mg Tab SUBLINGUAL Q5M PRN Chest Pain Ropinirole HCl 1 mg 09/12/20 01:24 09/12/20 01:33 Ropinirole Hcl 1 Mg Tab PO Not Given HS [facility]AY[facility] Intake and Output 09/11/20 09/12/20 09/12/20 22:59 06:59 14:59 Intake Total 920.264 0 Output Total 250 Balance 670.264 0 Intake: Intake, IV Titration 680.264 0 Amount Heparin Sod,Pork in 0.45% 80.264 0 NaCl 25,000 unit In 0.45 % NaCl 1 250ml.bag @ 18 UNITS/KG/HR 12.574 mls/hr IV .[id number] [facility] Rx#: [id number] Sodium Chloride 0.9% 1, 600 000 ml @ 100 mls/hr IV . Q10H [facility] Rx#:[id number] Oral 240 Output: Urine 250 Other: Voiding Method Bedside Commode Bedside Commode Bedside Commode # Voids 1 1 Weight 69.853 kg 70.1 kg 09/12/20 08:25 09/11/20 17:07
--- NOTE | 2020-09-12 15:43 | CDI ---
Documentation Clarification Form Date: 09/12/2020 02:56:00 PM From: Sandi Armas RN, CCDS Admit Date: 09/11/2020 07:08:00 PM Patient Name: Belkis Ribera Visit Number: [id number] Discharge Date: ATTENTION: The Clinical Documentation Specialists (CDI) and [facility] Coding Staff appreciate your assistance in clarifying documentation. Please respond to the clarification below the line at the bottom and electronically sign. The CDI & [facility] Coding staff will review the response and follow-up if needed. Please note: Queries are made part of the Legal Health Record. If you have any questions, please contact the author of this message via ITS. Dr. Wilbert Rodriguez Acute large saddle pulmonary emboli with evidence of high clot burden in the IVC and right atrium with right heart strain is documented in the cardiology consult and in the H/P. Please render your opinion on any additional diagnosis this may indicate. History/Risk Factors: Pulmonary Embolism, Seizure Disorder Clinical Indicators: 75-year-old female present to ED with complaints of exertional shortness of breath and midsternal dull chest pain. 09/11 Vital signs: 129/69 118 20 98.9 94 % RA 09/11 Lab findings: D-Dimer 14.30 Troponin I 1.070, 1.450, BNP 4810 CT angio chest: Large central pulmonary emboli crossing the midline compatible with saddle embolus with extensive clot burden involving superior vena cava. 09/12 ECHO: LV size wall thickness and systolic function are normal, with an EF greater than 55% the right ventricle is severely enlarged. The right ventricular septal wall is flattened in diastole and systole with is consistent with right ventricular volume and pressure overload. There is moderate to severe pulmonary hypertension. Structure in the right atrium most consistent with a thrombus. Treatment: Telemetry monitoring Heparin Drip (titrate) PTT/INR per orders In your professional opinion, can you please further clarify pulmonary embolism? Acute Saddle Pulmonary Embolism with Acute Cor Pulmonale Acute Saddle Pulmonary Embolism without Acute Cor Pulmonale Other, please specify Unable to determine (Last Revision: December 2017) Acute saddle pulmonary embolism My opinion there is no acute cor pulmonale but that can be acute pulmonary hypertension which I don't believe patient has. MTDD
[2020-09-12] MEDS: HEPARIN SOD,PORK IN 0.45% NACL 25,000 UNIT in 0.45% NACL 1 250ML.BAG IV SCH (16:10)
[2020-09-12 21:48] VITALS: BP 126/80; PULSE 88; TEMP 98
== END 2020-09-12 23:40 | disposition short-term general hospital (02) | DRG 176 ==
LOC: EC 16:28 → 3SCARD 19:08
PROVIDERS: ADMIT Internal Medicine; ATTEND Internal Medicine
DX: I26.92 Saddle embolus of pulmonary artery without acute cor pulmonale (principal); I82.432 Acute embolism and thrombosis of left popliteal vein; G40.909 Epilepsy, unspecified, not intractable, without status epilepticus; F32.9 Major depressive disorder, single episode, unspecified; I45.10 Unspecified right bundle-branch block; I27.20 Pulmonary hypertension, unspecified; Z20.828 Contact with and (suspected) exposure to other viral communicable diseases; Z88.8 Allergy status to other drugs, medicaments and biological substances; Z79.82 Long term (current) use of aspirin; Z86.718 Personal history of other venous thrombosis and embolism
CPT/HCPCS: 36415; 71046; 71275; 80053; 80061; 82550; 83735; 83880; 84484; 85025; 85379; 85610; 85730; 87635; 93005; 93306; 93970; 99291